=== PATIENT | female | born 1970 | race Caucasian/White ===

== ENCOUNTER 2021-06-16 04:17 | Day surgery (SDC) | payer OTHER ==
[2021-06-10 11:14] VITALS: BMI 37.5
[2021-06-16] MEDS ORDERED: MIDAZOLAM HCL 2 MG/2 ML SINGLE DOSE VIAL ONE ×2 (09:22→10:40)
[2021-06-16] MEDS ORDERED: PROPOFOL 20 ML ONE ×3 (09:23)
[2021-06-16] MEDS ORDERED: LIDOCAINE HCL/PF 2% SDV 5ML VIAL ONE (09:23)
[2021-06-16] MEDS ORDERED: SUCCINYLCHOLINE CHLORIDE 200 MG/10 ML SYRINGE ONE (09:25)
[2021-06-16] MEDS ORDERED: ONDANSETRON 4 MG/2 ML VIAL ONE (11:08)
[2021-06-16] MEDS ORDERED: DEXAMETHASONE SOD PHOSPHATE 4 MG/1 ML VIAL ONE (11:08)
[2021-06-16] MEDS ORDERED: KETOROLAC TROMETHAMINE 30 MG/1 ML VIAL ONE (11:22)
[2021-06-16] MEDS ORDERED: ONDANSETRON 4 MG/2 ML VIAL IVPUSH PRN (11:29)
[2021-06-16] MEDS ORDERED: oxyCODONE HCL 5 MG TABLET PO PRN (11:29)
[2021-06-16] MEDS ORDERED: LACTATED RINGERS SOLUTION 1,000 ML IV SCH (11:30)
[2021-06-16 12:41] VITALS: TEMP 97.5
[2021-06-16 13:35] VITALS: BP 114/70; PULSE 88
== END 2021-06-16 13:10 | disposition home or self-care (01) ==
LOC: JASU-SURG 04:17
PROVIDERS: ATTEND Obstetrics & Gynecology
PROC: 0UB98ZX Excision of Uterus, Via Natural or Artificial Opening Endoscopic, Diagnostic (ICD-10-PCS; principal; 2021-06-16 09:30)
PROC: 0UDB7ZX Extraction of Endometrium, Via Natural or Artificial Opening, Diagnostic (ICD-10-PCS; 2021-06-16 09:30)
DX: N84.0 Polyp of corpus uteri (principal)
CPT/HCPCS: 88305-TC; 94760

== ENCOUNTER 2022-11-30 03:59 | Day surgery (SDC) | payer BC, OTHER ==
[2022-11-25 17:06] VITALS: BMI 39.3
[2022-11-30] MEDS ORDERED: oxyCODONE HCL 5 MG TABLET PO PRN ×2 (09:24→11:16)
[2022-11-30] MEDS ORDERED: ONDANSETRON 4 MG/2 ML VIAL IVPUSH PRN ×2 (09:24→11:16)
[2022-11-30] MEDS ORDERED: PROMETHAZINE HCL 25 MG/1 ML VIAL IVPB PRN (09:24)
[2022-11-30] MEDS ORDERED: LACTATED RINGERS SOLUTION 1,000 ML IV SCH (09:30)
[2022-11-30] MEDS ORDERED: MIDAZOLAM HCL 2 MG/2 ML SINGLE DOSE VIAL ONE (10:11)
[2022-11-30] MEDS ORDERED: GLYCOPYRROLATE 0.2 MG/1 ML VIAL ONE (10:11)
[2022-11-30] MEDS ORDERED: BUPIVACAINE HCL/PF 0.5% (5MG/ML) 10 ML VIAL ONE (10:26)
[2022-11-30] MEDS ORDERED: IBUPROFEN 800 MG/8 ML IJ IVPB PRN (11:16)
[2022-11-30] MEDS ORDERED: IBUPROFEN 600 MG TABLET (FP) PO PRN (11:16)
[2022-11-30] MEDS ORDERED: ELECTROLYTE-148 SOLN 1,000 ML IV SCH (11:30)
[2022-11-30 12:16] LABS: HEMATOCRIT 13.4 % (32.4-45.2); MCHC 29.7 g/dl (32.0-36.0); MEAN CELL VOLUME 80.8 fl (80-96); MEAN PLT VOLUME 8.7 fl (7.5-11.1); PLATELET COUNT 45 10^3/uL (134-434); RBC 1.65 M/mm3 (3.60-5.2); RDW 22.1 % (11.6-15.6)
[2022-11-30] MEDS ORDERED: LORazepam 2 MG/ML SDV VIAL IVPUSH ONE (12:30)
[2022-11-30 13:34] LABS: MCH 23.3 pg (25.7-33.7); MCHC 30.1 g/dl (32.0-36.0); MEAN CELL VOLUME 77.3 fl (80-96); MEAN PLT VOLUME 8.7 fl (7.5-11.1); PLATELET COUNT 99 10^3/uL (134-434); RBC 3.88 M/mm3 (3.60-5.2); RDW 22.5 % (11.6-15.6)
[2022-11-30 15:33] VITALS: RESP 16
[2022-11-30 15:41] VITALS: BP 158/79; PULSE 105; TEMP 94
== END 2022-11-30 14:40 | disposition home or self-care (01) ==
LOC: JASU-SURG 03:59
PROVIDERS: ATTEND Obstetrics & Gynecology
PROC: 0UDB8ZX Extraction of Endometrium, Via Natural or Artificial Opening Endoscopic, Diagnostic (ICD-10-PCS; principal; 2022-11-30 10:00)
DX: N95.0 Postmenopausal bleeding (principal)
CPT/HCPCS: 36415; 81025; 85027; 88305-TC; 94760

== ENCOUNTER 2025-03-12 13:10 | Inpatient (IN) | payer BC, OTHER ==
[2025-03-12 14:11] VITALS: BMI 38.9
[2025-03-12] MEDS ORDERED: NALOXONE (NARCAN) HCL 4 MG/0.1 ML SPRAY NS PRN (14:22)
[2025-03-12] MEDS ORDERED: DICYCLOMINE HCL 10 MG CAPSULE PO PRN (14:22)
[2025-03-12] MEDS ORDERED: METHOCARBAMOL 500 MG TABLET PO PRN (14:22)
[2025-03-12] MEDS ORDERED: ONDANSETRON *ODT* 4 MG TABLET SL PRN (14:22)
[2025-03-12] MEDS ORDERED: BENZONATATE 200 MG CAPSULE PO PRN (14:22)
[2025-03-12] MEDS ORDERED: IBUPROFEN 400 MG TABLET (FP) PO PRN (14:22)
[2025-03-12] MEDS ORDERED: BENZOCAINE/MENTHOL (CHLORASEPTIC ) LOZENGE MM PRN (14:22)
[2025-03-12] MEDS ORDERED: MAG HYDROX/AL HYDROX/SIMETH 30 ML UNIT-DOSE CUP PO PRN (14:22)
[2025-03-12] MEDS ORDERED: guaiFENesin 600 MG TABLET.ER (FP) PO PRN (14:22)
[2025-03-12] MEDS ORDERED: LOPERAMIDE HCL 2 MG CAPSULE PO PRN (14:22)
[2025-03-12] MEDS ORDERED: hydrOXYzine PAMOATE 25 MG CAPSULE (FP) PO PRN (14:22)
[2025-03-12] MEDS ORDERED: POLYETHYLENE GLYCOL (HEALTHYLAX) 3350 17 GM PACKET PO PRN (14:22)
[2025-03-12] MEDS ORDERED: MAGNESIUM HYDROX 2400MG/30ML ORAL SUSPENSION 30 ML CUP PO PRN (14:22)
[2025-03-12] MEDS ORDERED: ALBUTEROL SO4 HFA INHALER IH PRN (18:41)
[2025-03-12] MEDS: ACETAMINOPHEN 325 MG TABLET (FP) PO PRN (19:32)
[2025-03-12] MEDS: levETIRAcetam 500 MG TABLET (FP) PO SCH (23:07)
[2025-03-12] MEDS: MONTELUKAST NA 10 MG TABLET PO SCH (23:07)
[2025-03-12] MEDS: CARVEDILOL 3.125 MG TABLET (FP) PO SCH (23:08)
[2025-03-12] MEDS: LATANOPROST 0.005% OPHTH SOLN 2.5ML BOTTLE OU SCH (23:12)
[2025-03-12] MEDS: MELATONIN 5 MG TABLETS PO SCH (23:12)
[2025-03-12] MEDS: THIAMINE 100 MG TABLET PO SCH (23:12)
[2025-03-12] MEDS: BRIMONIDINE TARTRATE 0.2% OPHTHALMIC 5 ML BOTTLE OD SCH (23:12)
[2025-03-12] MEDS: BISMUTH SUBSALICYLATE 524 MG/30 ML PO PRN (23:20)
[2025-03-13] MEDS: LEVOTHYROXINE 100 MCG, LEVOTHYROXINE 75 MCG PO SCH (06:24)
[2025-03-13] MEDS ORDERED: LEVOTHYROXINE NA 150 MCG TABLET PO SCH (07:00)
[2025-03-13] MEDS: FLUTICASONE PROP 0.05% 16 GM NASAL SPRAY NS SCH (10:25)
[2025-03-13] MEDS: FUROSEMIDE 40 MG TABLET (FP) PO SCH (10:28)
[2025-03-13] MEDS: PRENATAL VITAMINS W/ FOLIC ACID TABLET (FP) PO SCH (10:28)
[2025-03-13] MEDS: LOSARTAN POTASSIUM 50 MG TABLET PO SCH (10:31)
[2025-03-13] MEDS: FLUTICASONE/UMECLIDIN/VILANTER(100-62.5-25 TRELEGY ELLIPTA) INAHLER IH SCH (10:31)
[2025-03-13 11:02] LABS: MCHC 31.1 g/dl (32.2-35.5); MEAN CELL VOLUME 93.0 fl (79.4-94.8); MEAN PLT VOLUME 11.2 fl (9.4-12.3); RDW 19.9 % (12.3-16.6)
[2025-03-13 12:22] LABS: GLUCOSE,RANDOM 109.0 mg/dL (74-106); TOT PROT 7.3 g/dl (6.4-8.2)
[2025-03-13 12:23] LABS: CO2 23.0 mmol/L (21-32)
[2025-03-13 12:25] LABS: ALK PHOS 158.0 U/L (40-150)
[2025-03-13 12:27] LABS: SGOT/AST 88.0 U/L (5-34); SGPT/ALT 35.0 U/L (0-55)
[2025-03-13 12:28] LABS: CREATININE 1.22 mg/dL (0.55-1.3)
[2025-03-13 13:26] LABS: SYPHILIS W/ RPR CONF REACTIVE (NONREACTIVE)
[2025-03-13] MEDS: DORZOLAMIDE 2% HCL OPHTHALMIC SOLUTION 10 ML BOTTLE OD SCH (22:48)
[2025-03-14 11:24] LABS: INR 1.28 (0.83-1.09); PROTHROMBIN TIME (PATIENT) 14.1 SEC (9.7-13.0)
[2025-03-14 15:54] LABS: RPR REFLEX REACTIVE 1:1 (NONREACTIVE)
[2025-03-14] MEDS: PENICILLIN G BENZATHINE 2,400,000 UNIT/4 ML PFS IM ONE (17:53)
[2025-03-14] MEDS: ACAMPROSATE CALCIUM 333 MG TABLET.DR PO SCH (22:37)
[2025-03-15] MEDS: FLUCONAZOLE PO ONE (10:59)
[2025-03-15] MEDS: FLUCONAZOLE 150 MG TABLET PO ONE (11:08)
[2025-03-15] MEDS: IBUPROFEN 600 MG TABLET (FP) PO PRN (22:20)
[2025-03-17 13:24] VITALS: BP 96/58; PULSE 62; RESP 16; TEMP 98.4
== END 2025-03-17 13:25 | disposition home or self-care (01) | DRG 897 ==
LOC: YASAS 13:10 → Y6N 17:50
PROVIDERS: ADMIT Neuromusculoskeletal Medicine & OMM; ATTEND Student in an Organized Health Care Education/Training Program
PROC: HZ2ZZZZ Detoxification Services for Substance Abuse Treatment (ICD-10-PCS; principal; 2025-03-12)
DX: F10.230 Alcohol dependence with withdrawal, uncomplicated (principal); F10.280 Alcohol dependence with alcohol-induced anxiety disorder; F41.9 Anxiety disorder, unspecified; A53.9 Syphilis, unspecified; E03.9 Hypothyroidism, unspecified; E78.5 Hyperlipidemia, unspecified; I48.91 Unspecified atrial fibrillation; I11.0 Hypertensive heart disease with heart failure; I50.9 Heart failure, unspecified; J44.9 Chronic obstructive pulmonary disease, unspecified; K74.60 Unspecified cirrhosis of liver; R26.89 Other abnormalities of gait and mobility; Z99.89 Dependence on other enabling machines and devices; Z91.148 Patient's other noncompliance with medication regimen for other reason
CPT/HCPCS: 36415; 80053; 80307; 85027; 85610; 86593; 86780; 93005; 93010